=== PATIENT | male | born 2000 | race Caucasian/White ===

== ENCOUNTER 2020-08-30 14:53 | Emergency (ER) | payer OTHER, SELFPAY ==
--- NOTE | ~2020-08-30 | CT_ITS ---
EXAMINATION: CT abdomen pelvis w con DATE: 08/30/2020 16:09 INDICATION: Right lower quadrant abdominal pain. TECHNIQUE: Computed tomography (CT) of the abdomen and pelvis was performed with 100 mL Omnipaque-350 intravenous contrast. Automated exposure control and iterative reconstruction technique were employe d. The dose-length product was 935.92 mGy-cm. COMPARISON: None FINDINGS: Lung bases are clear. Heart size is normal. No pericardial or pleural effusion. Liver, gallbladder, s pleen, pancreas, bilateral adrenal glands and kidneys are normal. Moderate amount of stool scattered throughout the normal colon. Small bowel and appendix are normal. Bladder is normal. 2.5 x 2.1 cm lik harvey undescended testis position within the pelvis near the entrance to the right inguinal canal. Ther e is a small fluid collection within and extending slightly caudal to the right inguinal canal but no t into the right hemiscrotum proper. No free intraperitoneal gas or fluid within the abdomen or pelvi s. No pathologically enlarged abdominal or pelvic lymphadenopathy. Mild lower thoracic levoscoliosis with chronic appearing mild left-sided vertebral body height loss at L1 and chronic mild right-sided vertebral body height loss at T10 and T11. IMPRESSION: 1. 2.5 x 2.1 cm nodular soft tissue density near the entrance to the right inguinal canal likely repr esenting an undescended proximally retracted right testis with small fluid collection in the right in guinal canal. 2. Normal appendix. No other acute intra-abdominal/pelvic process. Reviewed, dictated and finalized at [facility]. ED [employer] IMPRESSION: 1. 2.5 x 2.1 cm nodular soft tissue density near the entrance to the right ingu inal canal likely representing an undescended proximally retracted right testis with small fluid collection in the right inguinal canal. 2. Normal appendix. No other acute intra-abdominal/pelvic process.
[2020-08-30 14:55] VITALS: BP 146/90; PULSE 64; RESP 18; TEMP 36.6; O2SAT 98
[2020-08-30 15:13] LABS: Basophils Absolute Auto 0.1 K/mm3 (0.0-0.1); Basophils Percent Auto 0.9 % (0.2-1.2); Eosinophils Absolute Auto 0.1 K/mm3 (0-0.3); Eosinophils Percent Auto 1.5 % (0-4.4); Hematocrit 46.6 % (42.0-52.0); Hemoglobin 15.6 g/dL (14.0-18.0); Immature Granulocyte Absolute 0.02 K/mm3 (0.00-0.031); Immature Granulocyte Percent A 0.3 % (0-0.5); Lymphocytes Absolute Auto 2.61 K/mm3 (0.9-3.2); Lymphocytes Percent Auto 44.6 % (18.3-44.2); Mean Corpuscular HGB Conc 33.5 g/dl (32-36); Mean Corpuscular Hemoglobin 29.8 pg (26-34); Mean Corpuscular Volume 88.9 fl (80-100); Mean Platelet Volume 9.8 fl (7.4-10.4); Monocytes Absolute Auto 0.6 K/mm3 (0.1-0.6); Monocytes Percent Auto 10.1 % (2.6-8.5); Neutrophils Absolute Auto 2.5 K/mm3 (1.3-6.7); Neutrophils Percent Auto 42.6 % (45.5-73.1); Platelet Count Result 239 k/mm3 (150-375); Red Blood Count 5.24 M/mm3 (4.6-6.20); Red Cell Distribution Width 12.5 % (11.5-14.5); White Blood Count 5.9 K/mm3 (4.5-10.0)
[2020-08-30 15:29] LABS: Alanine Aminotransferase 25 U/L (4-50); Albumin Level 4.5 g/dL (3.5-5.1); Alkaline Phosphatase 67 U/L (38-126); Anion Gap 11 mmol/L (8-16); Aspartate Amino Transferase 39 U/L (17-59); Bilirubin,Total 0.4 mg/dL (0.2-1.3); Blood Urea Nitrogen 10 mg/dL (9-20); Calcium 9.5 mg/dL (8.4-10.2); Carbon Dioxide 26 mmol/L (22-30); Chloride 105 mmol/L (98-107); Estimated CRCL calculation 135 ml/min; Estimated Glomerular Filt Rate > 60; Glucose 113 mg/dL (75-110); Lipase 49 U/L (23-300); Sodium 142 mmol/L (137-145)
[2020-08-30] MEDS: MORPHINE SULFATE (*CRX) 4 MG/ML INJ IV PUSH (15:46)
[2020-08-30 16:10] LABS: Add Urine Microscopic? YES; Amorphous Sediment Urine Few; Appearance Urine Cloudy (Clear); Bilirubin Urine Negative (Negative); Blood Urine Negative (Negative); Color Urine Yellow (Yellow); Glucose Urine UA Negative (Negative); Ketones Urine Negative (Negative); Leukocyte Esterase Ur Negative LEU/UL (Negative); Mucus Urine Rare /lpf; Nitrate Urine Negative (Negative); Protein Urine 1+ mg/dL (Negative); Specific Grav Ur 1.024 (1.001-1.035); Urobilinogen Urine Negative mg/dL (<2.0); WBC Urine 0-3 /hpf
--- NOTE | 2020-08-30 16:53 | ED.GENADULT ---
HPI - General Adult General Chief complaint: Abdominal Pain Stated complaint: right flank pain Time Seen by Provider: 08/30/20 15:29 History of Present Illness HPI narrative: Patient is a 19-year-old male who presents ER with right lower abdominal pain. Situated in the lower quadrant and also just above his right hip. Began last night while he was at a friend's house. No known trauma. Has not tried any real pain medications. Worse with movement. No fevers or chills or sweats. He is without diarrhea/nausea/vomiting. Concerned he may have appendicitis. Related Data Allergies Allergy/AdvReac Type Severity Reaction Status Date / Time No Known Allergies Allergy Verified 06/14/17 11:31 Review of Systems Review of Systems: All systems reviewed & are unremarkable except as noted in HPI and below Constitutional: Constitutional: Denies chills, Denies fever(s) and Denies weakness Gastrointestinal: Gastrointestinal: Reports abdominal pain, Denies constipation, Denies diarrhea, Denies nausea and Denies vomiting Genitourinary: Genitourinary: Denies dysuria and Denies urinary frequency PMF Past Medical History Medical History (Updated 08/30/20 @ 16:56 by Darryl Yates MD) Undescended right testicle Surgical History Surgical History (Updated 08/30/20 @ 16:54 by Darryl Yates MD) No history of previous surgery Family History Family History (Updated 06/14/17 @ 09:46 by DOCTOR UNKNOWN) Other Family history of malignant melanoma Social History Social History Smoking status: Never smoker Alcohol intake: never Exam Narrative: Exam Narrative: GENERAL: Well-appearing, well-nourished, and in no acute distress. HEAD: Normocephalic, atraumatic. CHEST: Clear to auscultation. No respiratory distress. HEART: Regular rate and rhythm. Normal peripheral pulses. ABDOMEN: Soft, mild tenderness in the right lower quadrant, nondistended. Fullness in the right inguinal canal or patient has an undescended testicle. No tenderness. EXTREMITIES: Normal range of motion. No edema. SKIN: Warm, dry, no rash. NEURO: Alert and oriented x3. Course Course Emergency Course: Unremarkable evaluation. Discharge home. May have abdominal wall strain. Vital Signs Vital signs: Vital Signs Temperature 97.9 F 08/30/20 14:55 Pulse Rate 64 08/30/20 14:55 Respiratory Rate 18 08/30/20 14:55 Blood Pressure 146/90 H 08/30/20 14:55 Pulse Oximetry 98 08/30/20 14:55 Temperature 97.9 F 08/30/20 14:55 Pulse Rate 64 08/30/20 14:55 Respiratory Rate 18 08/30/20 14:55 Blood Pressure 146/90 H 08/30/20 14:55 Pulse Oximetry 98 08/30/20 14:55 Medical Decision Making Vital Signs Vital Signs: Vital Signs Temperature 97.9 F 08/30/20 14:55 Pulse Rate 64 08/30/20 14:55 Respiratory Rate 18 08/30/20 14:55 Blood Pressure 146/90 H 08/30/20 14:55 Pulse Oximetry 98 08/30/20 14:55 Temperature 97.9 F 08/30/20 14:55 Pulse Rate 64 08/30/20 14:55 Respiratory Rate 18 08/30/20 14:55 Blood Pressure 146/90 H 08/30/20 14:55 Pulse Oximetry 98 08/30/20 14:55 Lab Data Result diagrams: 08/30/20 15:02 08/30/20 15:02 Labs: Lab Results 08/30/20 08/30/20 08/30/20 Range/Units 15:02 15:02 15:45 WBC 5.9 (4.5-10.0) K/mm3 RBC 5.24 (4.6-6.20) M/mm3 Hgb 15.6 (14.0-18.0) g/dL Hct 46.6 (42.0-52.0) % MCV 88.9 (80-100) fl MCH 29.8 (26-34) pg MCHC 33.5 (32-36) g/dl RDW 12.5 (11.5-14.5) % Plt Count 239 (150-375) k/mm3 MPV 9.8 (7.4-10.4) fl Immature Gran % (Auto) 0.3 (0-0.5) % Neut % (Auto) 42.6 L (45.5-73.1) % Lymph % (Auto) 44.6 H (18.3-44.2) % [place] % (Auto) 10.1 H (2.6-8.5) % Eos % (Auto) 1.5 (0-4.4) % Baso % (Auto) 0.9 (0.2-1.2) % Lymph # (Auto) 2.61 (0.9-3.2) K/mm3 [place] # (Auto) 0.6 (0.1-0.6) K/mm3 Eos # (Auto) 0.1 (0-0.3) K/mm3 Baso # (Auto) 0.1 (0
[2020-08-30 17:08] VITALS: BP 132/84; PULSE 96; RESP 15; O2SAT 97
== END 2020-08-30 17:11 | disposition home or self-care (01) ==
PROVIDERS: Emergency Provider Emergency Medicine; PCP Family Medicine
DX: R10.31 Right lower quadrant pain (principal)
CPT/HCPCS: 36415; 74177; 80053; 81001; 83690; 85025; 96374; 99284; J2270; Q9967